=== PATIENT | female | born 2000 | race American Indian/Alaskan Native ===

== ENCOUNTER 2019-10-10 12:41 | Emergency (ER) | payer OTHER ==
[2019-10-10 13:27] VITALS: BP 129/67
--- NOTE | 2019-10-10 15:37 | Emergency Department Report ---
ED Upper Extremity Inj HPI - General Chief Complaint: Extremity Injury, Upper Stated Complaint: RIGHT ARM PAIN Time Seen by Provider: 10/10/19 15:36 Source: patient Mode of arrival: Ambulatory Limitations: No Limitations - History of Present Illness Initial Comments: Patient is a 19-year-old -[place] female comes to the ER complaining of wrist pain after injuring it at work. She states she did this about a week ago, it got better but yesterday she went back to work and it started hurting again. She is neurovascularly intact and has full range of motion of the extremity. -: Sudden, days(s) Other Injuries: none Handedness: right Place: work Improves With: none Worsens With: movement of extremity Associated Symptoms: denies other symptoms ED Review of Systems ROS: Stated complaint: RIGHT ARM PAIN Other details as noted in HPI Comment: All other systems reviewed and negative ED Past Medical Hx - Past Medical History Previous Medical History?: No - Surgical History Past Surgical History?: No - Family History Family history: no significant - Social History Smoking Status: Never Smoker ED Physical Exam - General Limitations: No Limitations General appearance: alert, in no apparent distress - Head Head exam: Present: atraumatic, normocephalic - Eye Eye exam: Present: normal appearance - ENT ENT exam: Present: mucous membranes moist - Neck Neck exam: Present: normal inspection - Respiratory Respiratory exam: Present: normal lung sounds bilaterally. Absent: respiratory distress - Cardiovascular Cardiovascular Exam: Present: regular rate, normal rhythm. Absent: systolic murmur, diastolic murmur, rubs, gallop - GI/Abdominal GI/Abdominal exam: Present: soft, normal bowel sounds - Extremities Exam Extremities exam: Present: normal inspection - Back Exam Back exam: Present: normal inspection - Neurological Exam Neurological exam: Present: alert, oriented X3 - Psychiatric Psychiatric exam: Present: normal affect, normal mood - Skin Skin exam: Present: warm, dry, intact, normal color. Absent: rash ED Course Vital Signs 10/10/19 13:25 Temperature 98.5 F Pulse Rate 62 Respiratory 17 Rate Blood Pressure 129/67 [Right] O2 Sat by Pulse 100 Oximetry ED Medical Decision Making - Radiology Data Radiology results: report reviewed, image reviewed - Medical Decision Making X-ray noted to be normal. Patient was placed in a black wrist restraint for comfort. Patient being discharged home with rice therapy and orthopedic follow-up. She verbalizes understanding of discharge plan of care Vital Signs 10/10/19 13:25 Temperature 98.5 F Pulse Rate 62 Respiratory 17 Rate Blood Pressure 129/67 [Right] O2 Sat by Pulse 100 Oximetry Patient is neurovascularly intact on discharge - Differential Diagnosis Rule out fracture Critical care attestation.: If time is entered above; I have spent that time in minutes in the direct care of this critically ill patient, excluding procedure time. ED Disposition Clinical Impression: Wrist sprain Disposition: TO HOME OR SELFCARE Is pt being admited?: No Does the pt Need Aspirin: No Condition: Stable Instructions: Wrist Sprain (ED) Additional Instructions: SPLINT FOR COMFORT MOTRIN OR TYLENOL FOR PAIN FOLLOW UP WITH DR ANDERSEN REFERRAL BELOW Referrals: RAHEL ANDERSEN MD [Staff Physician] - 3-5 Days Forms: Work/School Release Form(ED) Time of Disposition: 15:37
--- NOTE | 2019-10-10 16:07 | XRay Report ---
RIGHT WRIST 3 VIEW(S) INDICATION / CLINICAL INFORMATION: pain sp fall COMPARISON: None available. FINDINGS: BONES / JOINT(S): No acute fracture or subluxation. No significant arthritis. SOFT TISSUES: No significant abnormality. ADDITIONAL FINDINGS: None. Signer Name: Cristel Aguirre MD Signed: 10/10/2019 4:03 PM Workstation Name: [id number]
== END 2019-10-10 17:10 | disposition home or self-care (01) ==
LOC: ED 12:41
DX: S63.501A Unspecified sprain of right wrist, initial encounter (principal); X58.XXXA Exposure to other specified factors, initial encounter; Y93.89 Activity, other specified; Y92.69 Other specified industrial and construction area as the place of occurrence of the external cause; Y99.8 Other external cause status
CPT/HCPCS: 99283